=== PATIENT | female | born 1965 | race Caucasian/White ===

== ENCOUNTER 2024-06-22 19:31 | Emergency (ER) | payer OTHER, SELFPAY ==
[2024-06-22] VITALS (10 sets, daily range): BP systolic 147–200; BP diastolic 71–89; PULSE 83–109; RESP 10–22; TEMP 36.8; O2SAT 93–95; BMI 28.8
--- NOTE | 2024-06-22 19:50 | DI.RAD.S_ITS ---
PROCEDURE: XR CHEST 1V INDICATIONS: chest pain TECHNIQUE: One view of the chest was acquired. COMPARISON: None. FINDINGS: Surgical changes and devices: Right axillary clips. Lungs and pleura: Lungs are clear. No pleural effusions or pneumothorax. Mediastinum: Mediastinal contours appear normal. Heart size is normal. Bones and chest wall: No suspicious bony lesions. Overlying soft tissues appear unremarkable. IMPRESSION: No acute cardiopulmonary abnormality is seen. Dictated by: Roge Rice M.D. on 06/22/2024 at 20:50 Approved by: Roge Rice M.D. on 06/22/2024 at 20:51
[2024-06-22] MEDS: ONDANSETRON 4 MG/2 ML INJ IV (19:56)
[2024-06-22 20:00] LABS: Add Manual Diff / Slide Review NO; Basophils Absolute Auto 0 /uL (0-100); Basophils Percent Auto 0.3 % (0-2); Eosinophils Absolute Auto 0 /uL (0-450); Eosinophils Percent Auto 0.1 % (2-4); Hematocrit 43.5 % (36-46); Hemoglobin 15.3 g/dL (12.0-16.0); Lymphocytes Absolute Auto 900 /uL (1100-4500); Lymphocytes Percent Auto 11.9 % (25-40); Mean Corpuscular HGB Conc 35.2 % (30-36); Mean Corpuscular Hemoglobin 32.1 PG (26-34); Mean Corpuscular Volume 91.3 fL (80-100); Monocytes Absolute Auto 300 /uL (0-900); Monocytes Percent Auto 3.3 % (3-14); Neutrophils Absolute Auto 6400 /uL (1500-7000); Neutrophils Percent Auto 84.4 % (50-75); Platelet Count 91 X10^3/uL (150-400); Red Blood Cell Count 4.77 X10^6/uL (4.0-5.2); Red Cell Distribution Width 13.4 % (11.6-14.8); White Blood Cell Count 7.6 X10^3/uL (4.5-11.0)
--- NOTE | 2024-06-22 20:05 | ED.CHESTPAIN ---
HPI - Chest Pain General Chief Complaint: Chest Pain Stated Complaint: high blood pressure, N/V, chest pain Time Seen by Provider: 06/22/24 19:59 Source: patient Mode of arrival: Wheelchair History of Present Illness HPI narrative: 58yoF wtih PMH HTN, remote hx of breast CA (previously on tamoxifen, taken off due to liver enzyme elevation) presents for headache, nausea, vomiting, and chest pain. Patient states that she woke up around 430 a.m. with a headache and nausea. She states that she has tried to take [id number] medications for her headache, but due to her vomiting can not keep anything down. This afternoon she began to develop burning chest pain. Her home blood pressure cuff showed values as high as 200 systolic, and so she decided to come in for evaluation. Related Data Previous Rx's Medication Instructions Recorded metformin 500 mg tablet 500 mg PO BID #60 tabs 06/22/24 ondansetron 4 mg disintegrating 4 mg PO Q8H PRN nausea and 06/22/24 tablet vomiting #30 tabs Allergies Allergy/AdvReac Type Severity Reaction Status Date / Time erythromycin base AdvReac Hives Verified 06/22/24 19:42 Penicillins AdvReac Rash Verified 06/22/24 19:42 Patient History Social History Smoking Status: Never smoker Smoking Status: Never smoker alcohol intake frequency: a few times a week Substance Use Type: does not use Exam Initial Vital Signs Initial Vital Signs: Vital Signs Temperature 98.3 F 06/22/24 19:42 Pulse Rate 109 H 06/22/24 19:42 Respiratory Rate 22 06/22/24 19:42 Blood Pressure 187/89 H 06/22/24 19:42 Pulse Oximetry 95 06/22/24 19:42 Oxygen Delivery Method Room Air 06/22/24 19:42 Const: Awake, alert, ill-appearing, nontoxic Cardiac: Tachycardia, regular rhythm RESP: unlabored, clear bilaterally, no wheezing GI: Soft, nontender, nondistended Skin: Warm, Dry, intact, no rashes Neuro: AO x3, CN II-XII grossly intact, moves all extremities Course Orders Ordered: ED Orders 06/22/24 19:48 Respiratory Panel (Film Array) Stat 06/22/24 19:50 XR chest 1V Stat EKG-12 Lead Stat 06/22/24 19:52 Complete Blood Count AUTO DIFF Stat Comprehensive Metabolic Panel Stat Lipase Stat Magnesium Stat NT-proBNP (BNP-Adult 18+) Stat PTT Partial Thromboplastin Travis Stat Prothrombin Time INR Stat Troponin & CK Cardiac Panel Stat 06/22/24 20:04 CT head/brain wo con Stat 06/22/24 20:59 VBG [Venous Blood Gas] STAT Discontinued Medications Diphenhydramine HCl (Diphenhydramine 50 Mg/Ml Vial) 50 mg IV NOW ONE Stop: 06/22/24 21:16 Last Admin: 06/22/24 21:30 Dose: 50 mg Documented By: JAYNE Droperidol (Droperidol 5 Mg/2 Ml Vial) 2.5 mg IV NOW ONE Stop: 06/22/24 20:05 Last Admin: 06/22/24 20:12 Dose: 2.5 mg Documented By: JAYNE Sodium Chloride (Normal Saline 0.9%) 1,000 mls @ 1,000 mls/hr IV BOLUS ONE Stop: 06/22/24 21:58 Last Infusion: 06/22/24 22:20 Dose: Infused Documented By: Admin: 06/22/24 21:11 Dose: 1,000 mls/hr Documented By: JAYNE Metoclopramide HCl (Metoclopramide 10 Mg/2 Ml Inj) 10 mg IV NOW ONE Stop: 06/22/24 21:16 Last Admin: 06/22/24 21:30 Dose: 10 mg Documented By: JAYNE Morphine Sulfate (Morphine 4 Mg/Ml Inj) 4 mg IV NOW ONE Stop: 06/22/24 20:18 Last Admin: 06/22/24 20:21 Dose: 4 mg Documented By: JAYNE Ondansetron HCl (Ondansetron 4 Mg/2 Ml Inj) 4 mg IV NOW PRN PRN Reason: Nausea And Vomiting Last Admin: 06/22/24 19:56 Dose: 4 mg Documented By: CHRISTIAN Ondansetron HCl (Ondansetron 4 Mg Odt) 4 mg SL NOW PRN PRN Reason: Nausea And Vomiting Vital Signs Vital signs: Vital Signs - 8 hr 06/22/24 19:42 06/22/24 20:02 06/22/24 20:03 Temperature 98.3 F Pulse Rate 109 H 97 H 95 H Respiratory Rate 22 18 22 Blood Pressure 187/89 H Pulse Oximetry 95 Oxygen Delivery Method Room Air 06/22/24 20:03 06/22/24 20:31 06/22/24 20:36 Temperature Pulse Rate 87 88 Respiratory Rate 19 12 Blood Pressure 200/88 H Pulse Oximetry 94 93 Oxygen Delivery Method 06/22/24 20:36 06/22/24 21:00 06/22/24 21:01 Temperature Pulse Rate 86 87 Respiratory Rate 10 L 12 Blood Pressure 188/84 H Pulse Oximetry 94 94 Oxygen Delivery Method 06/22/24 21:01 06/22/24 21:30 06/22/24 21:30 Temperature Pulse Rate 83 Respiratory Rate 11 L Blood Pressure 163/84 H 147/71 H Pulse Oximetry 93 Oxygen Delivery Method 06/22/24 22:00 06/22/24 22:00 06/22/24 22:30 Temperature Pulse Rate 91 H 87 Respiratory Rate 12 12 Blood Pressure 171/83 H Pulse Oximetry 95 95 Oxygen Delivery Method 06/22/24 22:30 Temperature Pulse Rate Respiratory Rate Blood Pressure 152/77 H Pulse Oximetry Oxygen Delivery Method MDM - Chest Pain Differential Diagnosis Differential diagnosis: Likely atypical chest pain, costochondritis and chest pain Lab Data 06/22/24 19:52 06/22/24 19:52 Labs: Lab Results 06/22/24 06/22/24 Range/Units 19:48 19:52 WBC 7.6 (4.5-11.0) X10^3/uL RBC 4.77 (4.0-5.2) X10^6/uL Hgb 15.3 (12.0-16.0) g/dL Hct 43.5 (36-46) % MCV 91.3 (80-100) fL MCH 32.1 (26-34) PG MCHC 35.2 (30-36) % RDW 13.4 (11.6-14.8) % Plt Count 91 L (150-400) X10^3/uL Neut % (Auto) 84.4 H (50-75) % Lymph % (Auto) 11.9 L (25-40) % [place] % (Auto) 3.3 (3-14) % Eos % (Auto) 0.1 L (2-4) % Baso % (Auto) 0.3 (0-2) % Neut # (Auto) 6400 (0354-5092) /uL Lymph # (Auto) 900 L (2546-7668) /uL [place] # (Auto) 300 (0-900) /uL Eos # (Auto) 0 (0-450) /uL Baso # (Auto) 0 (0-100) /uL PT 13.0 H (9.4-12.5) SECONDS INR 1.1 (0.9-1.3) APTT 29 (25.1-36.5) SECONDS Sodium 136 L (137-145) mmol/L Potassium 3.6 (3.4-5.1) mmol/L Chloride 102 (98-107) mmol/L Carbon Dioxide 20 L (22-32) mmol/L BUN 14 (7-17) mg/dL Creatinine 0.49 L (0.52-1.04) mg/dL Estimated GFR > 60 (>60) mL/min BUN/Creatinine Ratio 28.6 H (6-22) Glucose 313 H (70-100) mg/dL Calcium 9.7 (8.4-10.2) mg/dL Magnesium 1.8 (1.6-2.3) mg/dL Total Bilirubin 1.5 H (0.2-1.3) mg/dL AST 55 H (14-36) IU/L ALT 76 H (<35) IU/L Alkaline Phosphatase 190 H (38-126) U/L Total Creatine Kinase 56 (30-135) U/L Troponin I < 0.012 (0.01-0.034) ng/mL NT-Pro-B Natriuret Pep 21 (<125) pg/mL Total Protein 8.9 H (6.3-8.2) g/dL Albumin 4.4 (3.5-5.0) g/dL Globulin 4.5 H (1.7-4.1) g/dL Albumin/Globulin Ratio 1.0 (1.0-2.8) Lipase 118 (23-300) U/L Chlamy pneumoniae PCR Not detected (Not Detect) Adenovirus (PCR) Not detected (Not Detect) B.parapertussis DNA PCR Not detected (Not Detecte) Coronavirus OC43 (PCR) Not detected (Not Detect) Coronavirus HKU1 (PCR) Not detected (Not Detect) Coronavirus 229E (PCR) Not detected (Not Detect) SARS-CoV-2 (PCR) Detected H (Not Detecte) Coronavirus NL63 (PCR) Not detected (Not Detect) Human Metapneumovir PCR Not detected (Not Detect) Influenza Type A (PCR) Not detected (Not Detect) Influenza Type B (PCR) Not detected (Not Detect) M. pneumoniae (PCR) Not detected (Not Detect) Parainfluenza 1 (PCR) Not detected (Not Detect) Parainfluenza 2 (PCR) Not detected (Not Detect) Parainfluenza 3 (PCR) Not detected (Not Detect) Parainfluenza 4 (PCR) Not detected (Not Detect) RSV (PCR) Not detected (Not Detect) Entero/Rhino (PCR) Not detected (Not Detect) Imaging Data CT scan - head: Radiologist's Impression: PROCEDURE: CT HEAD/BRAIN WO CON INDICATIONS: severe headache, n/v TECHNIQUE: Noncontrast 4.5 mm thick angled axial sections acquired from the foramen magnum to the vertex, with coronal and sagittal reformats. For radiation dose reduction, the following was used: automated exposure control, adjustment of mA and/or kV according to patient size. COMPARISON: None. FINDINGS: Image quality: Diagnostic. CSF spaces: Basal cisterns are patent. No extra-axial fluid collections. Ventricles are normal in size and shape. Brain: No midline shift. No intracranial masses or hemorrhage. Torres-white matter interface is normal. Skull and face: Calvarium and visualized facial bones are intact, without suspicious lesions. Sinuses: Visualized sinuses and mastoids are clear. IMPRESSION: No acute intracranial pathology. Dictated by: Roge Rice M.D. on 06/22/2024 at 20:45 Approved by: Roge Rice M.D. on 06/22/2024 at 20:47 Chest x-ray: Radiologist's Impression: PROCEDURE: XR CHEST 1V INDICATIONS: chest pain TECHNIQUE: One view of the chest was acquired. COMPARISON: None. FINDINGS: Surgical changes and devices: Right axillary clips. Lungs and pleura: Lungs are clear. No pleural effusions or pneumothorax. Mediastinum: Mediastinal contours appear normal. Heart size is normal. Bones and chest wall: No suspicious bony lesions. Overlying soft tissues appear unremarkable. IMPRESSION: No acute cardiopulmonary abnormality is seen. Dictated by: Roge Rice M.D. on 06/22/2024 at 20:50 Approved by: Roge Rice M.D. on 06/22/2024 at 20:51 ECG Data Interpretation: Normal sinus rhythm at 100 beats per minute. Normal AR, no ST T wave changes, no STEMI MDM Narrative Medical decision making narrative: Headache, nausea, vomiting, and chest pain. sick with COVID 1 week prior. Physical exam with no acute abnormalities. Lab work ordered, CT imaging of brain ordered, CXR ordered for assessment. Abdomen soft without reproducible tenderness. Will defer abdominal imaging at this time. Laboratory work shows WBC count 7.6, hemoglobin 15.3, platelets 91, sodium 136, potassium 3.6, creatinine 0.49, glucose 313, T bili 1.5, AST 55, ALT 76, alk phos 190, troponin undetectable, anion gap 14. VBG with pH 7.367. Patient tested positive for COVID-19. CT brain imaging negative for acute findings. Chest x-ray negative for acute findings. Patient is still reporting nausea after Zofran. Additional IV antiemetics ordered. Lab results discussed with patient at bedside. She states that around 5 years ago she ended up stopping all of her medications including her tamoxifen, BP meds and metformin due to overall feeling poorly. She moved to [place] 3 years ago and has not established with a PCP since she hasn't felt poorly. I informed her of her elevated glucose and recommended restarting the metformin. Liver enzymes possibly due to previous injury from Tamoxifen. Patient able to tolerate po, feels improved after medications. All labs and imaging discussed with patient and at bedside. Metformin refilled and sent to pharmacy. Zofran also sent for nausea control at home. Patient is strongly advised to follow up with her primary care doctor assigned to her by her [employer] insurance. Discharge Plan Departure Patient Disposition: Home Clinical Impression: Chest pain, Headache, Nausea & vomiting, Hyperglycemia, COVID-19 Instructions: Nausea and Vomiting-Adult Activity Restrictions/Additional Instructions: Your laboratory work, x-ray, EKG, and CT imaging were overall reassuring today. Your blood work did show that you have elevated blood glucose, which would qualify you for a diagnosis of diabetes. I highly recommend that you follow up with your primary care doctor. In the meantime, I will restart your metformin, take this medication daily for help with your blood sugars. Prescriptions: New ondansetron 4 mg tablet,disintegrating 4 mg PO Q8H PRN (Reason: nausea and vomiting) Qty: 30 0RF metformin 500 mg tablet 500 mg PO BID Qty: 60 0RF Stand Alone Forms: Patient Portal/API
[2024-06-22 20:06] LABS: INR 1.1 (0.9-1.3)
[2024-06-22 20:08] LABS: PTT Partial Thromboplastin Tim 29 SECONDS (25.1-36.5)
--- NOTE | 2024-06-22 20:08 | EKG_ITS ---
[address] [address] Test Date: 2024-06-22 Pat Name: Jyoti Galloway [facility] Room: Gender: Female [employer] Director: JOSHUA OSBORN : 1965 Requested By: Order Number: [id number] Reading MD: Mati Mcconnell Measurements Intervals [place] Rate: 100 P: 42 OK: 172 QRS: 10 QRSD: 88 T: 20 QT: 390 QTc: 503 Interpretive Statements Normal sinus rhythm Prolonged QT Electronically Signed On 06-23-2024 8:14:05 PDT by Mati Mcconnell
[2024-06-22 20:10] LABS: Alanine Aminotransferase 76 IU/L (<35); Albumin 4.4 g/dL (3.5-5.0); Alkaline Phosphatase 190 U/L (38-126); Aspartate Aminotransferase 55 IU/L (14-36); BUN Creatinine Ratio 28.6 (6-22); Bilirubin Total 1.5 mg/dL (0.2-1.3); Blood Urea Nitrogen 14 mg/dL (7-17); Calcium 9.7 mg/dL (8.4-10.2); Carbon Dioxide 20 mmol/L (22-32); Chloride 102 mmol/L (98-107); Creatine Kinase 56 U/L (30-135); Estimated Glomerular Filt Rate > 60 mL/min (>60); Globulin 4.5 g/dL (1.7-4.1); Glucose 313 mg/dL (70-100); HEMOLYSIS < 15 (0-50); Lipase 118 U/L (23-300); Magnesium 1.8 mg/dL (1.6-2.3); Potassium 3.6 mmol/L (3.4-5.1); Sodium 136 mmol/L (137-145); Total Protein 8.9 g/dL (6.3-8.2)
[2024-06-22] MEDS: DROPERIDOL 5 MG/2 ML VIAL 2.5 MG IV (20:12)
[2024-06-22 20:21] LABS: NT-proBNP (BNP-Adult 18+) 21 pg/mL (<125); Troponin I < 0.012 ng/mL (0.01-0.034)
[2024-06-22] MEDS: MORPHINE 4 MG/ML INJ IV (20:21)
[2024-06-22 20:45] LABS: Adenovirus Not Detected (Not Detect); B. parapertussis Not Detected (Not Detecte); Bordetella pertussis Not Detected (Not Detect); Chlamydophila pneumoniae Not Detected (Not Detect); Coronavirus 229E Not Detected (Not Detect); Coronavirus HKU1 Not Detected (Not Detect); Coronavirus NL 63 Not Detected (Not Detect); Coronavirus OC43 Not Detected (Not Detect); Human Metapneumovirus Not Detected (Not Detect); Human Rhinovirus/Enterovirus Not Detected (Not Detect); Influenza A Not Detected (Not Detect); Influenza B Not Detected (Not Detect); Mycoplasma pneumoniae Not Detected (Not Detect); Parainfluenza Virus 1 Not Detected (Not Detect); Parainfluenza Virus 2 Not Detected (Not Detect); Parainfluenza Virus 3 Not Detected (Not Detect); Parainfluenza Virus 4 Not Detected (Not Detect); Respiratory Syncytial Virus Not Detected (Not Detect); SARS- CoV-2 Detected (Not Detecte)
[2024-06-22] MEDS: SODIUM CHLORIDE 0.9% 1,000 ML 1000 ML IV (21:11)
[2024-06-22] MEDS: METOCLOPRAMIDE 10 MG/2 ML INJ IV (21:30)
[2024-06-22] MEDS: diphenhydrAMINE 50 MG/ML VIAL IV (21:30)
[2024-06-23 03:32] LABS: Base Excess VBG -2.2 mmol/L (0-4); HCO3 VBG 23 mmol/L (24-28); Oxygen Saturation VBG 86 % (70-75); PCO2 VBG 40.1 mmHg (45-50); PO2 VBG 53 mmHg (35-45); Total CO2 VBG 23 mmol/L (24-29); pH VBG 7.37 (7.33-7.43)
== END 2024-06-22 23:07 | disposition home or self-care (01) ==
PROVIDERS: Emergency Provider Emergency Medicine
DX: U07.1 COVID-19 (principal); R73.9 Hyperglycemia, unspecified; R07.9 Chest pain, unspecified; R00.0 Tachycardia, unspecified; R11.2 Nausea with vomiting, unspecified; R51.9 Headache, unspecified
CPT/HCPCS: 36415; 70450; 71045; 80053; 82550; 82805; 83690; 83735; 83880; 84484; 85025; 85610; 85730; 87633; 93005; 96361; 96374; 96375; 99284; J1200; J1790; J2270; J2405; J2765

== ENCOUNTER → 2024-07-09 09:19 | Outpatient (CLI) | payer OTHER, SELFPAY ==
[2024-07-09 10:20] LABS: Hemoglobin A1C% w Est Avg Glu 9.8 % (4.0-6.0)
[2024-07-09 10:54] LABS: Cholesterol 160 mg/dL (140-199); HDL Cholesterol 64 mg/dL (40-60); LDL Cholesterol Calculated 65 mg/dL (<100); Triglycerides 153 mg/dL (35-150)
[2024-07-09 12:50] LABS: Creatinine Urine Random 106.54 mg/dL
[2024-07-09 12:55] LABS: Microalbumin Urine Random 1.2 mg/dL (0-1.6)
[2024-07-10 16:43] LABS: HIV 1 & 2 Ab/Ag 4th Gen Combo NEGATIVE (NEGATIVE)
[2024-07-10 16:47] LABS: Hep C Virus Ab w/Reflex Quant NEGATIVE s/c (NEGATIVE)
== END ==
PROVIDERS: Physician Assistant; PCP Family Medicine; Referring Provider Family Medicine; Visit Provider Family Medicine
DX: Z11.4 Encounter for screening for human immunodeficiency virus [HIV] (principal); E11.9 Type 2 diabetes mellitus without complications; Z11.59 Encounter for screening for other viral diseases
CPT/HCPCS: 36415; 80061; 82043; 82570; 83036; 86803; 87389

== ENCOUNTER → 2025-03-28 08:31 | Outpatient (CLI) | payer OTHER, SELFPAY ==
[2025-03-28 09:40] LABS: Hemoglobin A1C% w Est Avg Glu 9.2 % (4.0-6.0)
[2025-03-28 10:02] LABS: Alanine Aminotransferase 71 IU/L (<35); Albumin 4.4 g/dL (3.5-5.0); Albumin Globulin Ratio 1.2 (1.0-2.8); Alkaline Phosphatase 137 U/L (38-126); Aspartate Aminotransferase 57 IU/L (14-36); BUN Creatinine Ratio 21.7 (6-22); Bilirubin Total 1.6 mg/dL (0.2-1.3); Blood Urea Nitrogen 13 mg/dL (7-17); Calcium 9.4 mg/dL (8.4-10.2); Carbon Dioxide 25 mmol/L (22-32); Chloride 103 mmol/L (98-107); Cholesterol 177 mg/dL (140-199); Estimated Glomerular Filt Rate > 60 mL/min (>60); Globulin 3.7 g/dL (1.7-4.1); Glucose 325 mg/dL (70-99); HDL Cholesterol 61 mg/dL (40-60); HEMOLYSIS < 15 (0-50); LDL Cholesterol Calculated 88 mg/dL (<100); Potassium 4.5 mmol/L (3.4-5.1); Sodium 136 mmol/L (137-145); Total Protein 8.1 g/dL (6.3-8.2); Triglycerides 142 mg/dL (35-150)
== END ==
PROVIDERS: PCP Family Medicine; Referring Provider Family Medicine; Visit Provider Family Medicine
DX: E11.9 Type 2 diabetes mellitus without complications (principal); I10 Essential (primary) hypertension; E78.5 Hyperlipidemia, unspecified
CPT/HCPCS: 80053; 80061; 83036